=== PATIENT | female | born 1965 | race Caucasian/White ===

== ENCOUNTER 2021-12-20 08:09 | Emergency (ER) | payer OTHER ==
[2021-12-20] MEDS ORDERED: Dexamethasone 10 MG/ML VIAL ONE (08:56)
[2021-12-20] MEDS ORDERED: Ketorolac Tromethamine 30 MG/ML VIAL ONE (08:57)
[2021-12-20] MEDS ORDERED: traMADol HCl 50 MG TAB ONE (08:57)
== END 2021-12-20 09:20 | disposition home or self-care (01) ==
LOC: CSHERS 08:09
DX: M54.50 Low back pain, unspecified (principal); I10 Essential (primary) hypertension
CPT/HCPCS: 96372; 99283; J1100; J1885